=== PATIENT | female | born 1985 | race African-American/Black ===

== ENCOUNTER 2018-10-08 14:47 | Emergency (ER) | payer OTHER, SELFPAY ==
[~2018-10-08] VITALS: Ht 165.1 cm; Wt 81.2 kg
== END 2018-10-08 15:51 | disposition left against medical advice (07) ==
LOC: ED 15:45
DX: O21.9 Vomiting of pregnancy, unspecified (principal); Z53.21 Procedure and treatment not carried out due to patient leaving prior to being seen by health care provider